=== PATIENT | female | born 1995 | race Hispanic/Latino ===

== ENCOUNTER 2017-07-19 13:28 | Inpatient (IN) | payer MEDICAID ==
[~2017-07-19] VITALS: Ht 149.9 cm; Wt 61.2 kg
[2017-07-19] MEDS ORDERED: LACTATED RINGERS 1000ML 1,000 ML IV PRN (14:35)
[2017-07-19] MEDS ORDERED: AMPICILLIN 2GM+NS 100ML 100 ML IV SCH (14:45)
[2017-07-19] MEDS: AMPICILLIN 1GM+NS 50ML 50 ML IV SCH ×3 (14:45→23:19)
[2017-07-19 14:57] LABS: APPEARANCE,URINE Cloudy (CLEAR); BILIRUBIN,URINE Negative (NEGATIVE); COLOR,URINE Yellow (YELLOW); GLUCOSE, URINE (UA) Negative (NEGATIVE); KETONES,URINE Negative (NEGATIVE); LEUKOCYTE ESTERASE ,URINE Trace (NEGATIVE); NITRATE,URINE Negative (NEGATIVE); OCCULT BLOOD,URINE Negative (NEGATIVE); PH,URINE 7.5 (5.0-8.0); PROTEIN,URINE Negative (NEGATIVE); UROBILINOGEN,URINE 0.2 mg/dL (0.2-1.0)
[2017-07-19 15:21] LABS: HEMATOCRIT 28.2 % (36-48); MEAN CORPUSCULAR HEMOGLOBIN 28.5 pg (27.0-33.0); MEAN CORPUSCULAR HGB CONC 32.9 g/dL (32.0-36.0); MEAN CORPUSCULAR VOLUME 86.6 fL (79-99); PLATELET COUNT (AUTO) 273 K/uL (130-400); RED BLOOD CELL COUNT(AUTO) 3.25 MIL/uL (4.00-5.50); RED CELL DISTRIBUTION WIDTH 16.9 % (11.0-15.5); WHITE BLOOD COUNT (AUTO) 7.6 K/uL (4.8-10.8)
[2017-07-19 15:28] LABS: SQUAMOUS EPITHELIAL CELL,UR 30-50 /LPF (0-2)
[2017-07-19 15:29] LABS: BACTERIA,URINE Few /HPF (None Seen); RBC,URINE None Seen /HPF (0-1)
[2017-07-20] MEDS ORDERED: LACTATED RINGERS 1000ML 1,000 ML IV ONE ×2 (02:00→14:34)
[2017-07-20] MEDS ORDERED: OXYTOCIN 10 USP UNITS/ML ONE ×2 (02:00→14:34)
[2017-07-20] MEDS ORDERED: OXYTOCIN 10 USP UNITS/ML 20 UNIT in LACTATED RINGERS 1000ML 1,000 ML IV SCH (02:00)
[2017-07-20] MEDS: AMPICILLIN 1GM+NS 50ML 50 ML IV SCH ×4 (03:23→21:05)
[2017-07-20] MEDS ORDERED: PROMETHAZINE HCL 25 MG/ML 1ML AMPULE IM SCH (10:30)
[2017-07-20] MEDS: MEPERIDINE-PF 50 MG/ML SYG IVP SCH ×2 (10:49→21:04)
[2017-07-20] MEDS ORDERED: EPHEDRINE SULFATE 50 MG/ML AMPULE IVP PRN (12:00)
[2017-07-20] MEDS ORDERED: NALOXONE HCL 0.4 MG/1 ML ML IV PRN (12:00)
[2017-07-20] MEDS ORDERED: LACTATED RINGERS 500 ML 500 ML IV PRN (12:00)
[2017-07-20 16:57] VITALS: BP 121/78
[2017-07-20] MEDS ORDERED: LANOLIN 30GM OINTMENT TP PRN (17:45)
[2017-07-20] MEDS ORDERED: DIPH,PERTUSS(ACELL),TET VAC/PF 0.5 ML VIAL IM PRN (17:45)
[2017-07-20] MEDS ORDERED: BENZOCAINE/LANOLIN/ALOE VERA 60 ML AEROSOL TP PRN (17:45)
[2017-07-20] MEDS ORDERED: MEASLES/MUMPS/RUBELLA VACCINE, LIVE 0.5 ML/VIAL SQ PRN (17:45)
[2017-07-20] MEDS ORDERED: OXYTOCIN-LR 20 UNITS/1000 ML 1,000 ML IV SCH (17:45)
[2017-07-20] MEDS ORDERED: WITCH HAZEL 1 PAD TP PRN (17:45)
[2017-07-20] MEDS: IBUPROFEN 800 MG TAB PO PRN (18:22)
[2017-07-20] MEDS ORDERED: PNV1TABL17 PO (18:46)
[2017-07-20 19:59] VITALS: BP 116/71
[2017-07-20] MEDS: DOCUSATE SODIUM 100 MG CAP PO SCH (20:41)
[2017-07-20 22:52] VITALS: BP 106/64
[2017-07-21] MEDS: AMPICILLIN 1GM+NS 50ML 50 ML IV SCH ×4 (02:45→22:45)
[2017-07-21 03:41] VITALS: BP 114/59
[2017-07-21] MEDS: IBUPROFEN 800 MG TAB PO PRN (04:00)
[2017-07-21 05:34] LABS: HEMATOCRIT 25.1 % (36-48); MEAN CORPUSCULAR HEMOGLOBIN 28.6 pg (27.0-33.0); MEAN CORPUSCULAR HGB CONC 33.1 g/dL (32.0-36.0); MEAN CORPUSCULAR VOLUME 86.5 fL (79-99); PLATELET COUNT (AUTO) 215 K/uL (130-400); RED CELL DISTRIBUTION WIDTH 16.8 % (11.0-15.5); WHITE BLOOD COUNT (AUTO) 12.1 K/uL (4.8-10.8)
[2017-07-21 07:34] VITALS: BP 110/80
[2017-07-21 08:17] LABS: HEPATITIS Bs ANTIGEN SCREEN P Negative (Negative)
[2017-07-21] MEDS: DOCUSATE SODIUM 100 MG CAP PO SCH ×2 (08:56→20:26)
[2017-07-21 11:21] VITALS: BP 112/69
[2017-07-21 15:32] VITALS: BP 101/48
[2017-07-21 20:07] VITALS: BP 101/66
[2017-07-21 22:59] VITALS: BP 118/69
[2017-07-22] MEDS: AMPICILLIN 1GM+NS 50ML 50 ML IV SCH ×2 (02:45→03:09)
[2017-07-22 03:28] VITALS: BP 112/70
[2017-07-22 07:22] VITALS: BP 106/65
[2017-07-22] MEDS: DOCUSATE SODIUM 100 MG CAP PO SCH (08:53)
[2017-07-22] MEDS: IBUPROFEN 800 MG TAB PO PRN (08:53)
[2017-07-22] MEDS ORDERED: FERS325 PO (09:44)
[2017-07-22] MEDS ORDERED: IBUP-2070 PO (09:44)
[2017-07-22 11:18] VITALS: BP 102/68
== END 2017-07-22 14:35 | disposition home or self-care (01) | DRG 560 ==
LOC: LDH 14:19 → WSH 14:24 → LDH 07-20 03:00 → WSH 07-20 16:55
PROVIDERS: ADMIT Obstetrics & Gynecology; ATTEND Obstetrics & Gynecology
PROC: 10E0XZZ Delivery of Products of Conception, External Approach (ICD-10-PCS; principal; 2017-07-19)
PROC: 0W8NXZZ Division of Female Perineum, External Approach (ICD-10-PCS; 2017-07-19)
PROC: 3E0R3BZ Introduction of Anesthetic Agent into Spinal Canal, Percutaneous Approach (ICD-10-PCS; 2017-07-19)
PROC: 00HU33Z Insertion of Infusion Device into Spinal Canal, Percutaneous Approach (ICD-10-PCS; 2017-07-19)
PROC: 3E0P3VZ Introduction of Hormone into Female Reproductive, Percutaneous Approach (ICD-10-PCS; 2017-07-19)
PROC: 3E0234Z Introduction of Serum, Toxoid and Vaccine into Muscle, Percutaneous Approach (ICD-10-PCS; 2017-07-19)
PROC: 3E0134Z Introduction of Serum, Toxoid and Vaccine into Subcutaneous Tissue, Percutaneous Approach (ICD-10-PCS; 2017-07-19)
DX: O69.89X0 Labor and delivery complicated by other cord complications, not applicable or unspecified (principal); O99.824 Streptococcus B carrier state complicating childbirth; Z37.0 Single live birth; Z3A.37 37 weeks gestation of pregnancy; Z23 Encounter for immunization
CPT/HCPCS: 36415; 81001; 85027; 86592; 86850; 86900; 86901; 87340; 90715; A4314; A4606; J0290; J2175; J2550; J2590; J7120

== ENCOUNTER 2018-05-07 19:39 | Emergency (ER) | payer MEDICAID, OTHER ==
[~2018-05-07 19:39] MED LIST: FERS325 PO; IBUP-2070 PO; PNV1TABL17 PO
[2018-05-07 20:28] LABS: APPEARANCE,URINE Clear (CLEAR); BILIRUBIN,URINE Negative (NEGATIVE); COLOR,URINE Yellow (YELLOW); GLUCOSE, URINE (UA) Negative (NEGATIVE); KETONES,URINE Negative (NEGATIVE); LEUKOCYTE ESTERASE ,URINE Small (NEGATIVE); NITRATE,URINE Negative (NEGATIVE); OCCULT BLOOD,URINE Negative (NEGATIVE); PH,URINE 6.5 (5.0-8.0); PROTEIN,URINE Negative (NEGATIVE)
[2018-05-07 20:29] LABS: HCG,QUAL RESULT NEGATIVE (NEGATIVE)
[2018-05-07 20:58] LABS: BACTERIA,URINE Rare /HPF (None Seen); MUCUS,URINE Few LPF (None Seen); RBC,URINE None Seen /HPF (0-1)
== END 2018-05-07 20:52 | disposition home or self-care (01) ==
LOC: EDH 19:39
DX: N39.0 Urinary tract infection, site not specified (principal); Z98.890 Other specified postprocedural states; Z79.2 Long term (current) use of antibiotics
CPT/HCPCS: 81001; 81025